=== PATIENT | male | born 1960 | race American Indian/Alaskan Native ===

== ENCOUNTER 2021-06-26 10:28 | Day surgery (SDC) | payer MEDICAID ==
[~2021-06-26 10:28] MED LIST: SODIUM CHLORIDE 0.9% 1000 ML 1,000 ML IV SCH
--- NOTE | 2021-06-26 11:25 | Anesthesia Day of Surgery ---
Anesthesia Day of Surgery - Day of Surgery Patient Examined: Yes Patient H&P Reviewed: Yes Patient is NPO: Yes
--- NOTE | 2021-06-26 11:26 | Anesthesia Consultation ---
Anesthesia Consult and Med Hx Date of service: 06/26/21 - Airway Anesthetic Teeth Evaluation: Edentulous ROM Head & Neck: Adequate Mental/Hyoid Distance: Adequate Mallampati Class: Class II Intubation Access Assessment: Good - Pre-Operative Health Status ASA Pre-Surgery Classification: ASA2 Proposed Anesthetic Plan: MAC - Pulmonary Hx Smoking: No - Cardiovascular System Hx Hypertension: Yes - Gastrointestinal Hx Gastroesophageal Reflux Disease: No - Endocrine Hx Non-Insulin Dependent Diabetes: No - Hematic Hx Sickle Cell Disease: No - Other Systems Hx Obesity: No
[2021-06-26] MEDS ORDERED: LIDOCAINE MPF (2%) 20 MG/1 ML VIAL 5 ML ONE (12:01)
[2021-06-26] MEDS ORDERED: propofoL 200 MG/20 ML VIAL IV ONE (12:02)
--- NOTE | 2021-06-26 12:56 | Procedure Note ---
Date of procedure: 06/26/21 Pre-op diagnosis: Colon Polyp Screening Post-op diagnosis: other (No Colon Polyp or diverticular disease noted/ Minor, Internal Hemorrhoids/ Prep was fair to poor) Procedure: Colonoscopy Anesthesia: MAC Surgeon: DORIAN HOYT Pathology: none Condition: stable Disposition: same day (Resume home medication and F/U in 1 to 2 weeks ([phone]). Repeat Colonoscopy because of the suboptimal Prep in 1 to 2 years.)
--- NOTE | 2021-06-26 12:59 | Operative Report ---
DATE OF SURGERY: 06/26/2021 PROCEDURE: Colonoscopy. INDICATIONS: A 61-year-old -[place] gentleman with possible some degree of mental retardation, who had a colonoscopy done as a colon polyp screening. He has previously not had any colonoscopy done. DESCRIPTION OF PROCEDURE: Procedure was done after getting informed consent. Initial rectal exam was unremarkable. The instrument was passed with some degree of difficulty because of suboptimal prep to the cecum, which was identified by the ileocecal valve. Large quantities of fluid was suctioned out. Cecum, ascending colon, transverse colon, descending colon, and sigmoid showed normal mucosa. There was no evidence of any polyps, colitis or diverticular disease and the rectum showed some minor internal hemorrhoid on the retroverted view. ASSESSMENT: Colon polyp screening. No colon polyps, or diverticular disease noted. Minor internal hemorrhoids. Prep was fair to poor. PLAN: To have the patient resume home medication. Because of the suboptimal prep, another colonoscopy will be attempted with prep over 2 days, possibly in 1 to 2 years' time. Procedure was done in the GI lab with assistance of the GI lab team, which included the GI nurse, the technology applications engineer and with assistance of anesthesia. TID: [id number] RECEIPT: [id number] MATTY/JEREMY
--- NOTE | 2021-06-26 18:16 | Post Anesthesia Evaluation ---
- Post Anesthesia Evaluation Patient Participated: Yes Airway Patent: Yes Stable Respiratory Function: Yes Nausea/Vomiting: No Temp > 96.8F: Yes Pain Manageable: Yes Adequeate Hydration: Yes Anesthesia Complications: No Block Receding Appropriately: Not Applicable Patient on Ventilator: No
[2021-06-26 19:12] VITALS: BP 134/62
== END 2021-06-26 10:29 | disposition home or self-care (01) ==
LOC: GIO 10:28
DX: Z12.11 Encounter for screening for malignant neoplasm of colon (principal); K64.8 Other hemorrhoids; I10 Essential (primary) hypertension; Z79.899 Other long term (current) drug therapy
CPT/HCPCS: 45378; J2704; J3490; J7120